=== PATIENT | female | born 1960 | race African-American/Black ===

== ENCOUNTER 2024-02-29 21:50 | Inpatient (IN) | payer MEDICAID ==
[~2024-02-29] VITALS: Ht 170.2 cm; Wt 49.7 kg
[2024-02-29 21:30] VITALS: BP 125/67; PULSE 109; RESP 18; TEMP 36.418
[~2024-02-29 21:50] MED LIST: ALBU10.7; AMLO-307 PO; ETHA100T12 PO; LEVO750T68 MT; P20 MT
[2024-03-01] MEDS ORDERED: DIPHENHYDRAMINE 25MG CAPSULE PO PRN
[2024-03-01] MEDS ORDERED: ONDANSETRON HCL 4MG TABLET PO PRN
[2024-03-01] MEDS ORDERED: MAGNESIUM/ALUMINUM HYDROXIDE/SIMETHICONE 30ML UDC PO PRN
[2024-03-01] MEDS ORDERED: ACETAMINOPHEN 325MG TABLET PO PRN
[2024-03-01] MEDS: METHYLPREDNISOLONE SOD SUCC 40MG/ML (ACT-O-VIAL) IV SCH (05:31)
[2024-03-01] MEDS: SODIUM CHLORIDE 0.9% 3ML FLUSH IVF SCH (05:31)
[2024-03-01] MEDS: PROMETHAZINE/DEXTROMETHORPHAN 6.25-15MG/5ML PO PRN (05:50)
[2024-03-01 08:00] VITALS: BP 152/98; PULSE 108; PULSE 110; RESP 18; RESP 24; TEMP 35.5584; O2SAT 99
[2024-03-01] MEDS: IPRATROPIUM/ALBUTEROL 0.5-3(2.5)MG/3ML NEB HHN PRN (08:00)
[2024-03-01] MEDS: LORATADINE 10MG TABLET PO SCH (09:01)
[2024-03-01] MEDS: GUAIFENESIN 600MG ER TABLET PO SCH (09:01)
[2024-03-01] MEDS: PANTOPRAZOLE 40MG DR TABLET PO SCH (09:01)
[2024-03-01 12:05] VITALS: PULSE 112; RESP 24
[2024-03-01 13:46] LABS: CARBON DIOXIDE 35 mEq/L (21-32); CHLORIDE 101 mEq/L (98-107); POTASSIUM 4.9 mEq/L (3.5-5.1); SODIUM 144 mEq/L (136-145)
[2024-03-01 13:47] LABS: CALCIUM 9.7 mg/dL (8.7-10.4)
[2024-03-01 13:50] LABS: HEMATOCRIT. 28.6 % (36.0-48.0); HEMOGLOBIN. 8.5 g/dL (12.0-16.0); MEAN CORPUSCULAR HEMOGLOBIN 26.1 pg (28.0-32.0); MEAN CORPUSCULAR HGB CONC 29.6 g/dL (31.0-37.0); MEAN PLATELET VOLUME 7.3 fl (7.4-10.4); PLATELET 306 x1000/uL (130-400); RED BLOOD CELL COUNT 3.25 mill/uL (4.2-5.4); RED CELL DISTRIBUTION WIDTH 21.7 % (11.6-14.6)
[2024-03-01 13:51] LABS: CREATININE 0.5 mg/dL (0.6-1.0); GLUCOSE 172 mg/dL (70-105)
[2024-03-01 13:52] LABS: UREA NITROGEN BLOOD 19 mg/dL (9-23)
[2024-03-01 13:53] LABS: ALANINE AMINOTRANSFERASE 44 IU/L (10-49); ASPARTATE AMINOTRANSFERASE 27 IU/L (<34)
[2024-03-01 13:54] LABS: BILIRUBIN TOTAL 0.4 mg/dL (0.1-1.0); PREALBUMIN 13.9 mg/dl (10.0-40.0); PROTEIN TOTAL 6.9 g/dL (6.0-8.3)
[2024-03-01 13:56] LABS: DIFFERENTIAL COMMENT 1
[2024-03-01 16:46] LABS: ANISOCYTOSIS 1+; PLATELET ESTIMATE NORMAL
[2024-03-01 18:50] VITALS: PULSE 115; RESP 24
[2024-03-01 20:00] VITALS: BP 138/61; PULSE 111; RESP 18; TEMP 36.55848; O2SAT 92
[2024-03-01] MEDS ORDERED: METHYLPREDNISOLONE SOD SUCC 40MG/ML (ACT-O-VIAL) IV SCH (21:00)
[2024-03-01 21:09] VITALS: BP 138/61; PULSE 111; RESP 18; TEMP 36.55848; O2SAT 92
[2024-03-01] MEDS: FAMOTIDINE 20MG TABLET PO SCH (21:14)
[2024-03-01] MEDS: MONTELUKAST SODIUM 10MG TABLET PO SCH (21:15)
[2024-03-01] MEDS: DILTIAZEM HCL 60MG TABLET PO SCH (21:17)
[2024-03-02] VITALS (7 sets, daily range): BP systolic 96–118; BP diastolic 72–79; PULSE 84–112; RESP 17–33; TEMP 35.66952–35.89176; O2SAT 85–100
[2024-03-02 08:18] LABS: CHLORIDE 100 mEq/L (98-107); POTASSIUM 4.6 mEq/L (3.5-5.1); SODIUM 145 mEq/L (136-145)
[2024-03-02 08:19] LABS: CALCIUM 9.7 mg/dL (8.7-10.4); CARBON DIOXIDE 36 mEq/L (21-32)
[2024-03-02 08:23] LABS: IRON 28 ug/dL (50-170)
[2024-03-02 08:24] LABS: CREATININE 0.5 mg/dL (0.6-1.0); GLUCOSE 108 mg/dL (70-105); UREA NITROGEN BLOOD 16 mg/dL (9-23)
[2024-03-02 08:25] LABS: ALANINE AMINOTRANSFERASE 38 IU/L (10-49); PROTEIN TOTAL 6.6 g/dL (6.0-8.3)
[2024-03-02 08:26] LABS: ALBUMIN 3.8 g/dL (3.2-4.8); ASPARTATE AMINOTRANSFERASE 25 IU/L (<34); BILIRUBIN TOTAL 0.6 mg/dL (0.1-1.0); TOTAL IRON BINDING CAPACITY 398 ug/dl (250-425)
[2024-03-02 08:27] LABS: THYROID STIMULATING HORMONE 0.38 uIU/mL (0.55-4.78)
[2024-03-02] MEDS: PREDNISONE 20MG TABLET PO SCH (08:31)
[2024-03-02 08:32] LABS: HEMATOCRIT. 28.3 % (36.0-48.0); HEMOGLOBIN. 8.7 g/dL (12.0-16.0); MEAN CORPUSCULAR HEMOGLOBIN 26.8 pg (28.0-32.0); MEAN CORPUSCULAR HGB CONC 30.8 g/dL (31.0-37.0); MEAN CORPUSCULAR VOLUME 87.1 fL (81.0-99.0); MEAN PLATELET VOLUME 7.1 fl (7.4-10.4); PLATELET 283 x1000/uL (130-400); RED BLOOD CELL COUNT 3.25 mill/uL (4.2-5.4); RED CELL DISTRIBUTION WIDTH 21.6 % (11.6-14.6); WHITE BLOOD COUNT 23.8 x1000/uL (4.5-11.0)
[2024-03-02 08:50] LABS: DIFFERENTIAL COMMENT 1
[2024-03-02] MEDS ORDERED: ALBUTEROL (0.083%) 2.5MG/3ML NEB HHN SCH (12:00)
[2024-03-02 13:07] LABS: FERRITIN 109 ng/mL (10-291); FOLIC ACID (FOLATE) SERUM > 20.00 ng/mL (>5.38)
[2024-03-02 13:08] LABS: VITAMIN B12 SERUM 1049 pg/mL (211-911)
[2024-03-02] MEDS: METHYLPREDNISOLONE SOD SUCC 125MG/2ML (ACT-O-VIAL) IV NR (14:07)
[2024-03-02] MEDS: MAGNESIUM 2 G PREMIX 50 ML IV NR (14:37)
[2024-03-02] MEDS: FERROUS SULFATE 325MG TABLET PO SCH (17:11)
[2024-03-02] MEDS: ALBUTEROL (0.083%) 2.5MG/3ML NEB HHN SCH (20:46)
[2024-03-02 21:16] LABS: ANISOCYTOSIS 1+; PLATELET ESTIMATE NORMAL
[2024-03-02] MEDS: METHYLPREDNISOLONE SOD SUCC 40MG/ML (ACT-O-VIAL) IV SCH (21:38)
[2024-03-03 00:26] VITALS: RESP 25
[2024-03-03 04:14] VITALS: RESP 24
[2024-03-03 08:00] VITALS: BP 116/62; PULSE 76; RESP 18; TEMP 35.5584; TEMP 35.55840; O2SAT 97
[2024-03-03] MEDS: ASCORBIC ACID 500 MG TABLET PO SCH (08:58)
[2024-03-03 10:30] VITALS: PULSE 87; RESP 28; O2SAT 98
[2024-03-03 11:40] VITALS: RESP 35
[2024-03-03 14:42] VITALS: BP 116/62; PULSE 76; TEMP 97; O2SAT 96
[2024-03-03] MEDS ORDERED: BUDESONIDE 0.5MG/2ML NEB HHN SCH (14:45)
[2024-03-03] MEDS: CHOLECALCIFEROL (D3) 1000 UNIT TABLET PO SCH (15:48)
[2024-03-03] MEDS ORDERED: LEVOFLOXACIN 750MG PREMIX 150 ML IV SCH (16:15)
[2024-03-03 17:45] LABS: BG BASE EXCESS 11.3 mmol/L (-2.0-3.0); BG CARBOXYHEMOGLOBIN 0.3 % (0.5-1.5); BG HCO3 ACT 38.1 mmol/L (21.0-28.0); BG METHEMOGLOBIN 0.3 % (0.5-1.5); BG OXYHEMOGLOBIN 94.4 % (94.0-98.0); BG PCO2 66.3 mmHg (32.0-45.0); BG PH 7.377 (7.350-7.450); BG PO2 70.2 mmHg (83.0-108.0); BG SAMPLE SITE RIGHT RADIAL; BG TOTAL HEMOGLOBIN 8.7 g/dL (12.0-16.0); BG VENT MODE NASAL CANNULA
== END 2024-03-03 16:05 | disposition short-term general hospital (02) | DRG 140 ==
PROVIDERS: ADMIT Physical Medicine & Rehabilitation Spinal Cord Injury Medicine; ATTEND Internal Medicine
PROC: 5A09357 Assistance with Respiratory Ventilation, Less than 24 Consecutive Hours, Continuous Positive Airway Pressure (ICD-10-PCS; principal; 2024-03-02)
PROC: 5A09357 Assistance with Respiratory Ventilation, Less than 24 Consecutive Hours, Continuous Positive Airway Pressure (ICD-10-PCS; 2024-03-03)
DX: J44.1 Chronic obstructive pulmonary disease with (acute) exacerbation (principal); J96.01 Acute respiratory failure with hypoxia; I27.21 Secondary pulmonary arterial hypertension; I11.0 Hypertensive heart disease with heart failure; J84.9 Interstitial pulmonary disease, unspecified; I50.9 Heart failure, unspecified; J45.901 Unspecified asthma with (acute) exacerbation; R22.1 Localized swelling, mass and lump, neck; R26.9 Unspecified abnormalities of gait and mobility; R53.1 Weakness; R53.81 Other malaise; R73.9 Hyperglycemia, unspecified; D50.9 Iron deficiency anemia, unspecified; D72.829 Elevated white blood cell count, unspecified; E04.2 Nontoxic multinodular goiter; G47.33 Obstructive sleep apnea (adult) (pediatric); J43.9 Emphysema, unspecified; J96.02 Acute respiratory failure with hypercapnia; Z60.2 Problems related to living alone; Z87.891 Personal history of nicotine dependence; Z88.0 Allergy status to penicillin; Z91.81 History of falling; Z99.81 Dependence on supplemental oxygen; Z79.899 Other long term (current) drug therapy
CPT/HCPCS: 36415; 36600; 71045; 80053; 82306; 82375; 82607; 82728; 82746; 82805; 83036; 83540; 83550; 84134; 84443; 85025; 92610; 94070; 94640; 94660; 97161; 97166; 97530; 97535; A4606; J2919; J2920; J3475; J7512